=== PATIENT | female | born 1985 | race Caucasian/White ===

== ENCOUNTER 2017-04-29 07:49 | Emergency (ER) | payer MEDICAID ==
[~2017-04-29] VITALS: Ht 172.7 cm; Wt 79.8 kg
[2017-04-29 07:57] VITALS: Ht 172.7 cm; Wt 79.8 kg
[2017-04-29 10:37] LABS: BASOPHIL % 0.5 % (0-2); PLATELET COUNT 228 x10^3mcL (130-400)
[2017-04-29 10:39] LABS: RED CELL DISTRIBUTION WIDTH 16.2 % (11.5-14.5)
[2017-04-29 10:49] LABS: CALCIUM 7.9 mg/dL (8.5-10.1); CARBON DIOXIDE 26.4 mmol/L (21-32); CHLORIDE SERUM 106 mmol/L (98-107); CREATININE SERUM 0.6 mg/dL (0.6-1.0); GFR1 > 60 mL/min; GLUCOSE SERUM 93 mg/dL (74-106); SODIUM SERUM 141 mmol/L (136-145)
[2017-04-29 11:00] LABS: CK-MB < 0.5 ng/mL (0-3.6); CREATINE KINASE 49 U/L (26-192)
[2017-04-29 11:02] LABS: ALBUMIN 3.5 g/dL (3.4-5.0); ALKALINE PHOSPHATASE 74 U/L (46-116); ALT/SGPT 30 U/L (14-59); AST/SGOT 14 U/L (15-37); BILIRUBIN TOTAL 0.3 mg/dL (0.20-1.00); C REACTIVE PROTEIN 0.3 mg/dL (<=0.9); TOTAL PROTEIN, SERUM 7.7 g/dL (6.4-8.2)
[2017-04-29 11:04] LABS: UA SPECIFIC GRAVITY 1.015 (1.005-1.035); microscopic required? YES; urine erythrocyte NEGATIVE (NEGATIVE)
[2017-04-29 11:12] LABS: FREE T4 0.9 ng/dL (0.76-1.46); FREE THYROXINE INDEX 2.1 ug/dL (1.4-4.5); T4(THYROXINE) 6.4 ug/dL (4.7-13.3)
[2017-04-29 11:22] LABS: ERYTHROCYTE SED RATE 39 mm/hr (0-20)
[2017-04-29 12:13] LABS: T3 TOTAL 1.13 ng/mL
[2017-04-29 13:24] VITALS: BP 106/66
== END 2017-04-29 13:25 | disposition home or self-care (01) ==
LOC: ED 07:49
PROVIDERS: Specialist
DX: N12 Tubulo-interstitial nephritis, not specified as acute or chronic (principal); J11.1 Influenza due to unidentified influenza virus with other respiratory manifestations; R07.89 Other chest pain
CPT/HCPCS: 36600; 83880; 84439; 87804; J0696; J1170; J1885; J2405; J3010; J7030; Q0092

== ENCOUNTER 2018-05-29 08:19 | Emergency (ER) | payer SELFPAY ==
[~2018-05-29] VITALS: Ht 172.7 cm; Wt 75.7 kg
[2018-05-29 09:08] VITALS: BP 119/82
== END 2018-05-29 09:08 | disposition home or self-care (01) ==
LOC: ED 08:19
DX: H01.00A Unspecified blepharitis right eye, upper and lower eyelids (principal); J06.9 Acute upper respiratory infection, unspecified; R10.30 Lower abdominal pain, unspecified

== ENCOUNTER 2018-07-07 19:30 | Emergency (ER) | payer SELFPAY ==
[~2018-07-07] VITALS: Ht 175.3 cm; Wt 83.0 kg
[2018-07-07 19:49] VITALS: Ht 175.3 cm; Wt 83.0 kg
[2018-07-07 21:37] VITALS: BP 124/78
== END 2018-07-07 21:37 | disposition home or self-care (01) ==
LOC: ED 19:30
DX: I83.892 Varicose veins of left lower extremity with other complications (principal)
CPT/HCPCS: Q0092

== ENCOUNTER 2018-11-13 03:24 | Emergency (ER) | payer SELFPAY ==
[~2018-11-13] VITALS: Ht 172.7 cm; Wt 78.9 kg
[2018-11-13 03:26] VITALS: Ht 172.7 cm; Wt 78.9 kg
[2018-11-13 05:35] VITALS: BP 102/57
== END 2018-11-13 05:35 | disposition home or self-care (01) ==
LOC: ED 03:24
DX: L50.0 Allergic urticaria (principal)
CPT/HCPCS: J1200; J2930; J3490; J7030

== ENCOUNTER 2018-12-07 23:09 | Emergency (ER) | payer SELFPAY ==
[~2018-12-07] VITALS: Ht 175.3 cm; Wt 83.0 kg
[2018-12-07 23:12] VITALS: Ht 175.3 cm; Wt 83.0 kg
[2018-12-07 23:52] LABS: BASOPHIL % 0.6 % (0-2); PLATELET COUNT 221 x10^3mcL (130-400)
[2018-12-07 23:53] LABS: RED CELL DISTRIBUTION WIDTH 18.4 % (11.5-14.5)
[2018-12-07 23:54] LABS: microscopic required? YES; urine erythrocyte NEGATIVE (NEGATIVE)
[2018-12-08 03:22] VITALS: BP 114/71
== END 2018-12-08 03:22 | disposition home or self-care (01) ==
LOC: ED 23:09
PROVIDERS: Emergency Medicine
DX: R10.30 Lower abdominal pain, unspecified (principal); N83.202 Unspecified ovarian cyst, left side; N83.201 Unspecified ovarian cyst, right side; N91.2 Amenorrhea, unspecified; D64.9 Anemia, unspecified
CPT/HCPCS: 36415; Q0092